=== PATIENT | female | born 1960 | race Caucasian/White ===

== ENCOUNTER 2016-11-24 09:39 | Emergency (ER) | payer SELFPAY ==
[~2016-11-24] VITALS: Ht 167.6 cm; Wt 75.7 kg
[2016-11-24] MEDS ORDERED: DIPHTH,PERTUSS(ACELL),TET TOX 0.5 ML DISP.SYRIN. VAX IM ONE (10:00)
[2016-11-24] MEDS ORDERED: LIDOCAINE 1% / SOD BICARB 8.4% 20 ML VIAL. IJ ONE (10:00)
--- NOTE | 2016-11-24 10:06 | RAD ---
Right middle finger, 3 views, 11/24/2016: History: Injury There is a nondisplaced fracture of the terminal tuft of the distal phalanx. There is minimal spurring at the PIP joint. No other bony abnormality is detected. IMPRESSION: Nondisplaced fracture of the terminal tuft of the distal phalanx of the middle finger.
[2016-11-24 10:29] VITALS: BP 168/86
--- NOTE | 2016-11-24 10:41 | PHYS DOC ---
Past Medical History Past Medical History: Bipolar, Cancer, Depression, Diabetes-Type II, Hypertension Past Surgical History: Other Additional Past Surgical Histo: TUBAL , DC, BOWEL RESECTION R/T CA, Alcohol Use: None Drug Use: Marijuana Adult General Chief Complaint Chief Complaint: FINGER INJURY HPI HPI Patient is a 56 year old female presents to the emergency department with a history of smashing her right middle finger in a leg of table she was trying to set up. Patient states she was trying to pull the leg out to set the table up when she smashed her finger. Patient is unsure when her last tetanus immunization occurred. Bleeding is currently controlled at this time. Patient is unable to bend her finger at the DIP joint. Cap refill brisk < 2 seconds. Patient with laceration to the nail of the right middle finger. Review of Systems Review of Systems Constitutional: Denies fever or chills [] Eyes: Denies change in visual acuity, redness, or eye pain [] HENT: Denies nasal congestion or sore throat [] Respiratory: Denies cough or shortness of breath [] Cardiovascular: No additional information not addressed in HPI [] GI: Denies abdominal pain, nausea, vomiting, bloody stools or diarrhea [] : Denies dysuria or hematuria [] Musculoskeletal: Denies back pain or joint pain. Right middle finger pain Integument: Denies rash or skin lesions. Laceration to the right middle finger nail. Neurologic: Denies headache, focal weakness or sensory changes [] Endocrine: Denies polyuria or polydipsia [] Current Medications Current Medications Current Medications Medications (Trade) Dose Ordered Sig/Herminia Start Time Stop Time Status Last Admin Dose Admin Diphtheria/ Tetanus/Acell Pertussis (Boostrix) 0.5 ml ONCE ONCE 11/24/16 10:00 11/24/16 10:01 DC 11/24/16 10:00 0.5 ML Lidocaine/Sodium Bicarbonate (Buffered Lidocaine 1%) 20 ml 1X ONCE 11/24/16 10:00 11/24/16 10:01 DC 11/24/16 10:00 20 ML Allergies Allergies Allergies Coded Allergies Type Severity Reaction Last Updated Verified latex Allergy Intermediate RASH 03/26/15 Yes Physical Exam Physical Exam Constitutional: Well developed, well nourished, no acute distress, non-toxic appearance. [] HENT: Normocephalic, atraumatic, bilateral external ears normal, oropharynx moist, no oral exudates, nose normal. [] Eyes: PERRLA, EOMI, conjunctiva normal, no discharge. [] Neck: Normal range of motion, no tenderness, supple, no stridor. [] Cardiovascular:Heart rate regular rhythm, no murmur [] Lungs & Thorax: Bilateral breath sounds clear to auscultation [] Skin: Warm, dry, no erythema, no rash. Laceration noted to the right middle finger nail. Back: No tenderness Extremities: No tenderness, no cyanosis, no clubbing, ROM intact, no edema. Patient is unable to bend the finger at the DIP. Cap refill brisk < 2 seconds. Neurologic: Alert and oriented X 3, normal motor function, normal sensory function, no focal deficits noted. [] Psychologic: Affect normal, judgement normal, mood normal. [] Current Patient Data Vital Signs Vital Signs Date Time Temp Pulse Resp B/P (MAP) Pulse Ox O2 Delivery O2 Flow Rate FiO2 11/24/16 10:29 82 18 168/86 (113) 99 Room Air 11/24/16 09:47 98.4 98.4 EKG EKG [] Radiology/Procedures Radiology/Procedures [][facility] [address] [place] [address] IMAGING REPORT Signed PATIENT: ANGEL SANTORO ACCOUNT: [id number] : 1960 LOCATION: ER AGE: 56 SEX: F EXAM STATUS: PRE ER ORD. PHYSICIAN: DONATO HADDAD APRN REASON: right middle finger caught between table. PROCEDURE: FINGER(S) RIGHT Right middle finger, 3 views, 11/24/2016: History: Injury There is a nondisplaced fracture of the terminal tuft of the distal phalanx. There is minimal spurring at the PIP joint. No other bony abnormality is detected. IMPRESSION: Nondisplaced fracture of the terminal tuft of the distal phalanx of the middle finger. DICTATED and SIGNED BY: ANDRY MORROW MD DATE: 11/24/16 1002 CC: DONATO HADDAD APRN ~ Course & Med Decision Making Course & Med Decision Making Pertinent Labs and Imaging studies reviewed. (See chart for details) Patient was provided with discharged instructions, treatment regimen and followup recommendations. Patients right middle finger will be place in a splint. Patient was provided with signs and symptoms to return to emergency. Patient was instructed to keep the laceration clean and dry. Clean the site with soap and water. Watch for signs and symptoms of infection: redness, warmth or tenderness. Keep the area clean and dry. Followup with orthopedic in 5-7 days. Patient agrees with discharge instructions, treatment regimen and followup recommendations. [] Dragon Disclaimer Dragon Disclaimer This electronic medical record was generated, in whole or in part, using a voice recognition dictation system. Departure Departure Impression: Primary Impression: Nail avulsion, finger Additional Impression: Crushing injury of finger of right hand Disposition: 01 HOME, SELF-CARE Condition: STABLE Referrals: SARAHI BAILEY MD Patient Instructions: Crush Injury, Fingers or Toes, [id number], Nail Avulsion Injury Additional Instructions: Keep the area clean and dry Clean the site with soap and water twice a day and apply antibiotics to the area Wear the splint until you followup with orthopedic in 5-7 days Watch for sign and symptoms of infection: redness, warmth, tenderness or any yellow/ greenish drainage that may occur. Ice packs on 20 minutes and off 20 minutes several times a day Elevation as much as possible [place] for severe pain this medication will cause drowsiness do not take if you need to be alert and oriented Ibuprofen 800 mg every 8 hours with food, stop taking if you develop upset stomach Followup with orthopedic in 5-7 days the name of the hand Doctor in [place] Return to emergency department as needed for signs and symptoms that become worse. Scripts Hydrocodone/Apap 5-325 (NORCO 5-325 TABLET) 1 Each Tablet 1 TAB PO PRN Q6HRS Y for PAIN, #20 TAB 0 Refills Prov: DONATO HADDAD PHYSICIAN OFFICE ASSISTANT 11/24/16 Laceration/Wound Repair Laceration/Wound Repair : Wound Location: upper extremity Wound's Depth, Shape: nail-avulsed Wound Length (cm): 1 Wound Explored: clean Betadine Prep?: Yes Anesthesia: 1% Lidocaine Volume Anesthetic (ccs): 4 Wound Debrided: minimal Wound Repaired With: sutures Suture Size/Type: 3:0, nylon Progress Patients right middle finger was injected with 1% Lidocaine 4 ml. Finger soaking in betadine and NS for 20 minutes. Site irrigated with 150 ml NS. One suture 3-0 nylon placed in the nail, One suture 3-0 nylon placed in the lateral finger near the nail. Patient tolerated procedure well. Problem Qualifiers DONATO HADDAD PHYSICIAN OFFICE ASSISTANT Nov 24, 2016 10:41
[2016-11-24] MEDS ORDERED: HYDR-971 PO (11:10)
[2016-11-24] MEDS ORDERED: SULF1TAB24 PO (11:13)
== END 2016-11-24 11:22 | disposition home or self-care (01) ==
LOC: ER 09:39
DX: S61.302A Unspecified open wound of right middle finger with damage to nail, initial encounter (principal); W23.0XXA Caught, crushed, jammed, or pinched between moving objects, initial encounter; Y93.89 Activity, other specified; Y92.89 Other specified places as the place of occurrence of the external cause; Y99.8 Other external cause status; E11.9 Type 2 diabetes mellitus without complications; I10 Essential (primary) hypertension; F12.10 Cannabis abuse, uncomplicated
CPT/HCPCS: 12001; 73140; 90471; 90715; 99284-25

== ENCOUNTER 2017-07-13 09:57 | Emergency (ER) | payer OTHER ==
[2017-07-13] MEDS: HYDROcodone/APAP 5/325MG 1 TAB TABLET PO (11:45)
== END 2017-07-13 12:20 | disposition home or self-care (01) ==
LOC: ER 12:20
DX: M25.461 Effusion, right knee (principal); F31.9 Bipolar disorder, unspecified; E11.9 Type 2 diabetes mellitus without complications; I10 Essential (primary) hypertension; F12.10 Cannabis abuse, uncomplicated; Z91.040 Latex allergy status
CPT/HCPCS: 29505; 73564; 99284